=== PATIENT | male | born 1990 | race Asian ===

== ENCOUNTER 2019-01-04 07:18 | Emergency (ER) | payer MEDICAID ==
[~2019-01-04] VITALS: Ht 180.3 cm; Wt 86.2 kg
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
--- NOTE | 2019-01-04 07:23 | NUR ---
DR MANUEL AT BEDSIDE
--- NOTE | 2019-01-04 08:21 | NUR ---
Patient discharged to home in stable condition. Written and verbal after care instructions given. Patient verbalizes understanding of instruction.
[2019-01-04 08:23] VITALS: BP 132/76
== END 2019-01-04 08:24 | disposition home or self-care (01) ==
LOC: ER 07:21
DX: S42.032A Displaced fracture of lateral end of left clavicle, initial encounter for closed fracture (principal); V49.49XA Driver injured in collision with other motor vehicles in traffic accident, initial encounter; Y93.89 Activity, other specified; Y92.488 Other paved roadways as the place of occurrence of the external cause; Y99.8 Other external cause status
CPT/HCPCS: 73030-TC